=== PATIENT | male | born 1985 | race Caucasian/White ===

== ENCOUNTER 2018-12-14 20:28 | Emergency (ER) | payer BC ==
[2018-12-14] MEDS ORDERED: Amoxicillin/Clavulanate K 875-125 MG Tab PO ONE ×2 (20:29→21:45)
[2018-12-14] MEDS ORDERED: Amoxicillin/Clavulanate K 875-125 MG Tab ONE (21:46)
--- NOTE | 2018-12-14 21:50 | EDM.PDOC ---
ED HPI GENERAL MEDICAL PROBLEM - General Chief Complaint: ENT Problem Stated Complaint: GLANDS SWOLLEN IN FACE Time Seen by Provider: 12/14/18 21:40 Source of Information: Reports: Patient History Limitations: Reports: No Limitations - History of Present Illness INITIAL COMMENTS - FREE TEXT/NARRATIVE: This 33 yo male patient reports to the ED with a 1 day history of right sided facial swelling. The patient reports he did loose a filling in a tooth in the right lower jaw, but does not believe this is a dental abscess. 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 Right Throat Pain Score (Numeric/FACES): 5 - Related Data Allergies Allergy/AdvReac Type Severity Reaction Status Date / Time No Known Allergies Allergy Verified 12/14/18 21:06 Home Meds: Home Meds Allopurinol [Zyloprim] 100 mg PO DAILY 12/14/18 [History] atorvaSTATin [Lipitor] 10 mg PO DAILY 12/14/18 [History] Past Medical History Cardiovascular History: Reports: High Cholesterol, Hypertension - Past Surgical History HEENT Surgical History: Reports: Other (See Below) Other HEENT Surgeries/Procedures: turbenate reduction surgery 2019 Social & Family History - Tobacco Use Smoking Status *Q: Never Smoker - Caffeine Use Caffeine Use: Reports: None - Recreational Drug Use Recreational Drug Use: No ED ROS ENT - Review of Systems Review Of Systems: ROS reveals no pertinent complaints other than HPI. ED EXAM, ENT - Physical Exam Exam: See Below Exam Limited By: No Limitations General Appearance: Alert, WD/WN, Mild Distress Eye Exam: Bilateral Eye: EOMI, Normal Inspection, PERRL Ears: Normal External Exam, Normal Canal, Hearing Grossly Normal, Normal TMs Nose: Normal Inspection, Normal Mucousa, No Blood Mouth/Throat: Other (right sided facial swelling (parotid gland)) Head: Atraumatic, Normocephalic Neck: Normal Inspection, Supple, Non-Tender, Full Range of Motion Respiratory/Chest: No Respiratory Distress, Lungs Clear, Normal Breath Sounds, No Accessory Muscle Use, Chest Non-Tender Cardiovascular: Normal Peripheral Pulses, Regular Rate, Rhythm, No Edema, No Gallop, No JVD, No Murmur, No Rub GI/Abdominal: Normal Bowel Sounds, Soft, Non-Tender, No Organomegaly, No Distention, No Abnormal Bruit, No Mass (Male) Exam: Deferred Rectal (Males) Exam: Deferred Back: Normal Inspection, Full Range of Motion Extremities: Normal Inspection, Normal Range of Motion, Non-Tender, No Pedal Edema, Normal Capillary Refill Neurological: Alert, Oriented, CN II-XII Intact, Normal Cognition, Normal Gait, Normal Reflexes, No Motor/Sensory Deficits Psychiatric: Normal Affect, Normal Mood Skin: Warm, Dry, Intact, Normal Color, No Rash Lymphatic: No Adenopathy Course - Vital Signs Last Recorded V/S: Last Vital Signs Temp 36.8 C 12/14/18 21:06 Pulse 89 12/14/18 21:06 Resp 18 12/14/18 21:06 BP 156/81 H 12/14/18 21:06 Pulse Ox 98 12/14/18 21:06 - Orders/Labs/Meds Meds: Medications Discontinued Medications Generic Name Dose Route Start Last Admin Trade Name Ilia PRN Reason Stop Dose Admin Amoxicillin/Clavulanate Potassium 1 tab 12/14/18 21:45 12/14/18 21:49 Augmentin 875 Mg/125 Mg PO 12/14/18 21:46 1 tab ONETIME ONE Administration Amoxicillin/Clavulanate Potassium Confirm 12/14/18 21:46 12/14/18 21:49 Augmentin 875 Mg/125 Mg Administered 12/14/18 21:47 Not Given Dose 1 tab .ROUTE .STK-MED ONE Departure - Departure Time of Disposition: 21:47 Disposition: Home, Self-Care 01 Condition: Fair Clinical Impression: Acute parotitis - Discharge Information *PRESCRIPTION DRUG MONITORING PROGRAM REVIEWED*: Not Applicable *COPY OF PRESCRIPTION DRUG MONITORING REPORT IN PATIENT SUNSHINE: Not Applicable Instructions: Parotitis, [id number] Forms: ED Department Discharge Care Plan Goals: The patient was advised of the patient was advised of the examination results during the visit. The patient was given an oral dose of Augmentin (875/125) while in the ED. The patient was discharged with a dose of Augmentin (875/125) to take in the morning and a script for Augmentin (875/125) #20 to take 1 by mouth 2 times per day for 10 days. If the patient has any additional symptoms or concerns, the patient should either return to the emergency department or visit his primary care facility.
== END 2018-12-14 21:53 | disposition home or self-care (01) ==
LOC: DL.ED 20:28
DX: K11.21 Acute sialoadenitis (principal); I10 Essential (primary) hypertension; E78.00 Pure hypercholesterolemia, unspecified; Z79.899 Other long term (current) drug therapy
CPT/HCPCS: 99283; A9270